=== PATIENT | male | born 1980 | race Two or more races ===

== ENCOUNTER 2016-10-07 10:09 | Emergency (ER) | payer SELFPAY ==
[2016-10-07 10:49] VITALS: BP 124/81; PULSE 65; RESP 14; TEMP 98.6; O2SAT 96
--- NOTE | 2016-10-07 11:02 | UCPHY ---
H & P Time Seen by Provider: 10/07/16 10:48 Patient Type: New HPI/ROS: This patient presents with a chief complaint of a laceration to his left 3rd digit which occurred shortly before arrival when he accidentally cut with some type of grinding machine. He is complaining of numbness distal to the laceration which is on the ulnar side. He denies any motor dysfunction. Tetanus immunizations are current. Smoking Status: Never smoked Physical Exam: This is a well-developed well-nourished male who is in no acute distress. He is alert and lucid. His mental status and gait are normal. Examination of the left hand reveals a 3 cm laceration at the proximal base of the 3rd digit on the ulnar side. There is decreased sensation distal to the laceration. I can detect no motor dysfunction however. Constitutional: Initial Vital Signs Temperature (C) 37 C 10/07/16 10:47 Heart Rate 65 10/07/16 10:47 Respiratory Rate 14 10/07/16 10:47 Blood Pressure 124/81 H 10/07/16 10:47 O2 Sat (%) 96 10/07/16 10:47 O2 Delivery Mode Room Air Allergies/Adverse Reactions: No Known Allergies Allergy (Unverified 10/07/16 10:48) Home Medications: Medication Instructions Recorded NK [No Known Home Meds] 10/07/16 Medical Decision Making Procedures: A digital block was applied to the ulnar side of the digit using 0.5% Marcaine without epinephrine. The wound was thoroughly scrubbed. Exploration reveals that the laceration extends to the bone on ulnar side but I am unable to identify any laceration to the flexor tendon. Wound edges were trimmed and the wound was closed with 4,5-0 nylon sutures and a dressing was applied. Motor function after closure revealed full range of motion again no evidence of flexor tendon injury. Departure - Departure Disposition: Home, Routine, Self-Care Clinical Impression: Finger laceration with complication Qualifiers: Encounter type: initial encounter Qualified Code(s): S61.219A - Laceration without foreign body of unspecified finger without damage to nail, initial encounter Digital nerve laceration, finger Qualifiers: Encounter type: initial encounter Qualified Code(s): S64.40XA - Injury of digital nerve of unspecified finger, initial encounter Condition: Good Instructions: Finger Laceration (ED) Additional Instructions: You need to follow up with the hand surgeon whose name is provided to you in these pages on Tuesday. Keep your hand elevated as much as possible. Change the dressing in 3 days. Be sure to keep the wound covered until told not to do so. If you notice spreading redness, swelling, increasing pain and tenderness or wisam pus you should return immediately since these findings frequently indicate infection. It usually takes 3 days from the time of injury for an infection to begin. Adult Pain & Fever Control: We recommend Acetaminophen (Tylenol) and Ibuprofen (Motrin, Advil) for pain and fever control. When fever is high or pain severe, both drugs can be used at the same time, but at different intervals. Please note the time differences. Your dose is: Acetaminophen [650]mg every 4 to 6 hours ibuprofen [600]mg every [6] hours with food OR naproxen Sodium (Aleve) [440]mg every 12 hours. Note: do not take Acetaminophen with Hydrocodone (Vicodin, Lortab) or Oxycodone (Percocet). These medications also contain Acetaminophen. No more than 3000 mg of Acetaminophen should be taken in 24 hours (for an adult) . The maximal dose of ibuprofen that it is safe in a 24-hour period is 2400 mg. You may take 400 mg every 4 hours, 600 mg every 6 hours or 800 mg every 8 hours safely. Referrals: Jeff Pablo MD [Medical Doctor] - As per Instructions - PQRS PQRS Measurement: Not applicable
== END 2016-10-07 11:55 | disposition home or self-care (01) ==
LOC: CED 10:09
DX: S61.213A Laceration without foreign body of left middle finger without damage to nail, initial encounter (principal); S64.493A Injury of digital nerve of left middle finger, initial encounter; W31.9XXA Contact with unspecified machinery, initial encounter
CPT/HCPCS: G0463-PO